=== PATIENT | male | born 1995 | race Caucasian/White ===

== ENCOUNTER → 2016-08-11 | Outpatient (CLI) | payer BC ==
[~2016-08-11] MED LIST: ALPR-411 PO; ESCI1TAB10 PO; FLUO20CA35 PO
== END | disposition home or self-care (01) ==
LOC: C.LAB 18:17
PROVIDERS: ATTEND Pediatrics
DX: Z00.00 Encounter for general adult medical examination without abnormal findings (principal); E55.9 Vitamin D deficiency, unspecified